=== PATIENT | male | born 1985 | race Two or more races ===

== ENCOUNTER 2024-09-21 10:24 | Emergency (ER) | payer OTHER, SELFPAY ==
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
[2024-09-21 11:23] VITALS: BP 135/88; PULSE 89; RESP 18; TEMP 36.3; O2SAT 96; BMI 39.2
[2024-09-21 13:33] VITALS: BP 135/88; PULSE 89; RESP 18; TEMP 36.3; O2SAT 96
== END 2024-09-21 13:34 | disposition home or self-care (01) ==
PROVIDERS: Emergency Provider Emergency Medicine
DX: S16.1XXA Strain of muscle, fascia and tendon at neck level, initial encounter (principal); S39.012A Strain of muscle, fascia and tendon of lower back, initial encounter; V43.62XA Car passenger injured in collision with other type car in traffic accident, initial encounter; Y93.89 Activity, other specified; Y92.410 Unspecified street and highway as the place of occurrence of the external cause; Y99.9 Unspecified external cause status
CPT/HCPCS: 72072; 72100; 72125; 73030; 99282; 99284